=== PATIENT | female | born 1955 | race Caucasian/White ===

== ENCOUNTER 2020-06-01 08:00 | Outpatient (CLI) | payer MEDICARE ==
[2020-06-01 18:36] LABS: BASOPHILS # (AUTO) 0.1 10^3/uL (0.0-0.1); BASOPHILS % (AUTO) 0.8 %; EOSINOPHILS # (AUTO) 0.1 10^3/uL (0.0-0.7); EOSINOPHILS % (AUTO) 1.8 %; HGB - HEMOGLOBIN 16.6 g/dL (12.0-16.0); LYMPHOCYTES # (AUTO) 1.6 10^3/uL (1.5-3.5); MEAN CORPUSCULAR HEMOGLOBIN 32.8 pg (27.0-31.0); MEAN CORPUSCULAR HGB CONC 33.3 g/dL (32.0-36.0); MEAN CORPUSCULAR VOLUME 98.4 fL (81.0-99.0); MEAN PLATELET VOLUME 11.4 fL (7.9-10.8); MONOCYTES # (AUTO) 0.5 10^3/uL (0.0-1.0); MONOCYTES % (AUTO) 7.9 %; PLT - PLATELET COUNT 229 10^3/uL (130-450); RED BLOOD COUNT 5.06 10^6/uL (4.20-5.40); RED CELL DISTRIBUTION WIDTH 13.5 % (12.0-15.0); WHITE BLOOD COUNT 6.2 x10^3/uL (4.8-10.8)
[2020-06-01 18:55] LABS: ALBUMIN 4.1 g/dL (3.2-5.5); ALBUMIN/GLOBULIN RATIO 1.2 (1.0-2.2); ALKALINE PHOSPHATASE 73 IU/L (42-121); ALT ALANINE AMINOTRANSFERASE 12 IU/L (10-60); AST ASPARTATE AMINOTRANSFERASE 19 IU/L (10-42); BILIRUBIN,TOTAL 0.6 mg/dL (0.2-1.0); BUN - BLOOD UREA NITROGEN 15 mg/dL (6-20); CALCIUM 9.6 mg/dL (8.5-10.3); CARBON DIOXIDE - CO2 26 mmol/L (21-32); CHLORIDE 102 mmol/L (101-111); CHOL/HDL RATIO 2.8 (<4.4); CHOLESTEROL 249 mg/dL; CREATININE 0.9 mg/dL (0.4-1.0); GLUCOSE 81 mg/dL (70-100); HDL CHOLESTEROL 89 mg/dL; LDL CHOLESTEROL,CALCULATED 142 mg/dL; LDL/HDL RATIO 1.6 (<4.4); SODIUM 138 mmol/L (135-145); TOTAL PROTEIN 7.4 g/dL (6.7-8.2); VLDL CHOLESTEROL 18 mg/dL
== END 2020-06-01 23:59 | disposition home or self-care (01) ==
LOC: LAB.WCP 08:00
PROVIDERS: ATTEND Nurse Practitioner
DX: E07.9 Disorder of thyroid, unspecified (principal); I71.4 Abdominal aortic aneurysm, without rupture; Z79.01 Long term (current) use of anticoagulants; Z79.899 Other long term (current) drug therapy; Z85.118 Personal history of other malignant neoplasm of bronchus and lung
CPT/HCPCS: 36415; 80053; 80061; 83721; 84443; 85025

== ENCOUNTER 2020-06-27 20:51 | Emergency (ER) | payer MEDICARE ==
--- NOTE | 2020-06-27 21:13 | ED Physician Documentation ---
History of Present Illness - Stated complaint Stated Complaint: HEAD PX/FALL - Chief complaint Chief Complaint: Trauma Hd/Nk - History obtained from History obtained from: Patient - Additonal information Additional information: Patient is a 65-year-old female presents after she fell and hit her head it was witnessed she is on blood thinners. There is no loss of consciousness denies neck pain. Review of Systems Constitutional: reports: Reviewed and negative Eyes: reports: Reviewed and negative Ears: reports: Reviewed and negative Nose: reports: Reviewed and negative Throat: reports: Reviewed and negative Cardiac: reports: Reviewed and negative Respiratory: reports: Reviewed and negative GI: reports: Reviewed and negative : reports: Reviewed and negative Skin: reports: Reviewed and negative Musculoskeletal: reports: Reviewed and negative Neurologic: reports: Head injury Psychiatric: reports: Reviewed and negative Endocrine: reports: Reviewed and negative Immunocompromised: reports: Reviewed and negative PD PAST MEDICAL HISTORY - Allergies Allergies/Adverse Reactions: Allergies Allergy/AdvReac Type Severity Reaction Status Date / Time steroids Allergy Hallucinati Uncoded 06/27/20 21:04 ons PD ED PE NORMAL - Vitals Vital signs reviewed: Yes - General General: Alert and oriented X 3, No acute distress, Well developed/nourished - HEENT HEENT: PERRL, Other (4 x 4 centimeter posterior scalp hematoma but no septal hematoma no acute missing teeth no raccoon eyes no burnett sign) - Neck Neck: Supple, no meningeal sign, No bony TTP - Cardiac Cardiac: RRR, No murmur - Respiratory Respiratory: Clear bilaterally - Abdomen Abdomen: Normal bowel sounds, Soft, Non tender, Non distended - Derm Derm: Warm and dry - Extremities Extremities: No deformity - Neuro Neuro: Alert and oriented X 3 - Psych Psych: Normal mood, Normal affect Results - Vitals Vitals: Vital Signs - 24 hr 06/27/20 06/27/20 20:58 23:18 Temperature 36.9 C 36.6 C Heart Rate 87 72 Respiratory 18 22 Rate Blood Pressure 139/89 H 148/95 H O2 Saturation 92 94 Oxygen O2 Source Room air - Labs Labs: Laboratory Tests 06/27/20 06/27/20 06/27/20 21:11 21:11 21:11 WBC 7.5 RBC 5.18 Hgb 16.6 H Hct 50.9 H MCV 98.3 MCH 32.0 H MCHC 32.6 RDW 13.4 Plt Count 209 MPV 10.6 Neut # (Auto) 5.2 Lymph # (Auto) 1.6 [place] # (Auto) 0.5 Eos # (Auto) 0.1 Baso # (Auto) 0.1 Absolute Nucleated RBC 0.00 Nucleated RBC % 0.0 PT 13.6 H INR 1.2 APTT 30.0 Sodium 138 Potassium 3.7 Chloride 101 Carbon Dioxide 25 Anion Gap 12.0 BUN 12 Creatinine 0.9 Estimated GFR (MDRD) 62 L Glucose 111 H Calcium 9.5 Total Bilirubin 0.5 AST 22 ALT 20 Alkaline Phosphatase 79 Total Protein 7.6 Albumin 4.3 Globulin 3.3 Albumin/Globulin Ratio 1.3 Lipase 31 PD MEDICAL DECISION MAKING - ED course ED course: 65-year-old female who fell and hit the back of her head there is negative CT the head negative CT of the C-spine. Patient will be discharged home with close follow-up tomorrow with her primary care provider Departure - Departure Disposition: 01 Home, Self Care Clinical Impression: Scalp hematoma Qualifiers: Encounter type: initial encounter Qualified Code(s): S00.03XA - Contusion of scalp, initial encounter Fall Qualifiers: Encounter type: initial encounter Qualified Code(s): W19.XXXA - Unspecified fall, initial encounter Condition: Stable Instructions: ED Hematoma Follow-Up: Tiff Raman ARNP, [employer] [Primary Care Provider] - Tomorrow Comments: You may take Tylenol as needed for your pain. Ice your scalp hematoma several times daily please follow-up with your doctor tomorrow. Discharge Date/Time: 06/27/20 23:19
[2020-06-27 21:22] LABS: BASOPHILS # (AUTO) 0.1 10^3/uL (0.0-0.1); BASOPHILS % (AUTO) 0.7 %; EOSINOPHILS # (AUTO) 0.1 10^3/uL (0.0-0.7); EOSINOPHILS % (AUTO) 1.3 %; HGB - HEMOGLOBIN 16.6 g/dL (12.0-16.0); LYMPHOCYTES # (AUTO) 1.6 10^3/uL (1.5-3.5); LYMPHOCYTES % (AUTO) 21.7 %; MEAN CORPUSCULAR HGB CONC 32.6 g/dL (32.0-36.0); MEAN CORPUSCULAR VOLUME 98.3 fL (81.0-99.0); MEAN PLATELET VOLUME 10.6 fL (7.9-10.8); MONOCYTES # (AUTO) 0.5 10^3/uL (0.0-1.0); MONOCYTES % (AUTO) 6.3 %; NEUTROPHILS # (AUTO) 5.2 10^3/uL (1.5-6.6); NEUTROPHILS % (AUTO) 68.8 %; PLT - PLATELET COUNT 209 10^3/uL (130-450); RED BLOOD COUNT 5.18 10^6/uL (4.20-5.40); RED CELL DISTRIBUTION WIDTH 13.4 % (12.0-15.0); WHITE BLOOD COUNT 7.5 x10^3/uL (4.8-10.8)
[2020-06-27 21:25] LABS: INR 1.2 (0.8-1.2); PT - PROTHROMBIN TIME 13.6 secs (9.9-12.6)
[2020-06-27 21:32] LABS: ALBUMIN 4.3 g/dL (3.2-5.5); ALBUMIN/GLOBULIN RATIO 1.3 (1.0-2.2); BILIRUBIN,TOTAL 0.5 mg/dL (0.2-1.0); CALCIUM 9.5 mg/dL (8.5-10.3); CREATININE 0.9 mg/dL (0.4-1.0); TOTAL PROTEIN 7.6 g/dL (6.7-8.2)
--- NOTE | 2020-06-27 22:08 | CT Report ---
PROCEDURE: HEAD WO INDICATIONS: fall, xarelto, altered TECHNIQUE: Noncontrast 4.5 mm thick angled axial sections acquired from the foramen magnum to the vertex. For r adiation dose reduction, the following was used: automated exposure control, adjustment of mA and/or kV according to patient size. COMPARISON: None. FINDINGS: Image quality: Excellent. CSF spaces: Basal cisterns are patent. No extra-axial fluid collections. Ventricles are normal in size and shape. Brain: No midline shift. No acute intracranial hemorrhage or mass effect. An area of chronic encepha lomalacia is seen in the right occipital lobe. Scattered hypodensities in subcortical and periventric ular white matter compatible with chronic microvascular ischemic changes. Skull and face: A left parietal scalp hematoma is seen. No underlying skull fracture is seen. Postsur gical changes are seen in the right occipital region from prior craniotomy. Sinuses: Visualized sinuses and mastoids are clear. IMPRESSION: 1. No acute intracranial hemorrhage or mass effect. A left parieto-occipital scalp hematoma is seen without underlying skull fracture. 2. Postsurgical changes from right occipital craniotomy. Chronic encephalomalacia is seen in the rig ht occipital lobe. 3. Mild diffuse cerebral and cerebellar volume loss. Chronic microvascular ischemic changes. Reviewed by: Gabino Oscar MD on 06/27/2020 10:06 PM PDT Approved by: Gabino Oscar MD on 06/27/2020 10:06 PM PDT Station ID: [id number]
--- NOTE | 2020-06-27 22:26 | CT Report ---
PROCEDURE: CERVICAL SPINE WO INDICATIONS: fall neck pain TECHNIQUE: Noncontrast 3 mm thick sections acquired from the skull base to the T4 level. Sagittal and coronal r eformats were then constructed. For radiation dose reduction, the following was used: automated exp osure control, adjustment of mA and/or kV according to patient size. COMPARISON: None. FINDINGS: Image quality: Excellent. Bones: No acute fractures or dislocations. Visualized superior ribs are intact. Multilevel degener ative changes are seen throughout the cervical spine with degenerative endplate changes and facet hyp ertrophy. Soft tissues: Prevertebral soft tissues are normal in thickness. No paravertebral hematomas. No ap ical pneumothoraces. IMPRESSION: No acute cervical spine fracture or subluxation. Multilevel chronic degenerative changes are noted. Reviewed by: Gabino Oscar MD on 06/27/2020 10:24 PM PDT Approved by: Gabino Oscar MD on 06/27/2020 10:24 PM PDT Station ID: [id number]
[2020-06-27] MEDS ORDERED: ACETAMINOPHEN 325 MG TABLET PO STA (22:40)
[2020-06-27 23:19] VITALS: BP 148/95
== END 2020-06-27 23:19 | disposition home or self-care (01) ==
LOC: ED 20:51
DX: S00.03XA Contusion of scalp, initial encounter (principal); W18.30XA Fall on same level, unspecified, initial encounter; Z79.01 Long term (current) use of anticoagulants; M47.812 Spondylosis without myelopathy or radiculopathy, cervical region
CPT/HCPCS: 36415; 70450; 72125; 80053; 83690; 85025; 85610; 85730; 99282; 99284; A9270

== ENCOUNTER 2020-07-17 09:32 | Outpatient (CLI) | payer MEDICARE ==
[2020-07-17 09:59] LABS: BASOPHILS % (AUTO) 0.5 %; EOSINOPHILS # (AUTO) 0.1 10^3/uL (0.0-0.7); EOSINOPHILS % (AUTO) 2.1 %; HGB - HEMOGLOBIN 14.6 g/dL (12.0-16.0); LYMPHOCYTES # (AUTO) 1.2 10^3/uL (1.5-3.5); LYMPHOCYTES % (AUTO) 20.5 %; MEAN CORPUSCULAR HEMOGLOBIN 32.7 pg (27.0-31.0); MEAN CORPUSCULAR HGB CONC 33.1 g/dL (32.0-36.0); MEAN CORPUSCULAR VOLUME 98.9 fL (81.0-99.0); MEAN PLATELET VOLUME 10.4 fL (7.9-10.8); MONOCYTES # (AUTO) 0.5 10^3/uL (0.0-1.0); MONOCYTES % (AUTO) 8.7 %; NEUTROPHILS # (AUTO) 3.9 10^3/uL (1.5-6.6); NEUTROPHILS % (AUTO) 67.9 %; PLT - PLATELET COUNT 199 10^3/uL (130-450); RED BLOOD COUNT 4.46 10^6/uL (4.20-5.40); RED CELL DISTRIBUTION WIDTH 13.4 % (12.0-15.0); WHITE BLOOD COUNT 5.8 x10^3/uL (4.8-10.8)
[2020-07-17 10:32] LABS: THYROID STIMULATING HORMONE 1.15 uIU/mL (0.34-5.60)
[2020-07-17 10:34] LABS: FREE T3 5.21 pg/mL (2.5-3.9); FREE T4 (FREE THYROXINE) 0.92 ng/dL (0.58-1.64)
== END 2020-07-17 09:33 | disposition home or self-care (01) ==
LOC: LAB 09:32
PROVIDERS: ATTEND Nurse Practitioner
DX: E07.9 Disorder of thyroid, unspecified (principal); Z79.01 Long term (current) use of anticoagulants
CPT/HCPCS: 36415; 84439; 84443; 84481; 85025

== ENCOUNTER 2020-08-09 17:42 | Outpatient (CLI) | payer MEDICARE ==
[2020-08-09] MEDS ORDERED: IOVERSOL 320 50 ML VIAL PO ONE (19:15)
[2020-08-09] MEDS ORDERED: IOVERSOL 320 100 ML VIAL IVP ONE (19:16)
--- NOTE | 2020-08-10 17:55 | CT Report ---
PROCEDURE: CHEST W INDICATIONS: METASTATIC LUNG CA CONTRAST: IV CONTRAST: Optiray 320 ml: 100 PO CONTRAST: Optiray 320 ml50 TECHNIQUE: After the administration of intravenous contrast, 5 mm thick sections acquired from the pulmonary api bernadette to the posterior costophrenic angles. 7 mm thick coronal MIP reformats were acquired. For radia tion dose reduction, the following was used: automated exposure control, adjustment of mA and/or kV according to patient size. COMPARISON: None. FINDINGS: Image quality: Excellent. Lungs and pleura: There is a 1.5 x 1.2 x 2.1 cm spiculated mass in the posterior segment of the left upper lobe abutting the major fissure. There are scars and atelectasis in right upper lobe and right lower lobe. No acute air space opacities. No pleural effusions or pneumothorax. Central and periph eral airways are patent and normal in caliber. There is elevation of right hemidiaphragm. Mediastinum: Heart size is normal. No pericardial effusion. No enlarged mediastinal or hilar lymph nodes. Thoracic aorta and central pulmonary arteries are normal in size. Esophagus is normal in ca liber. No hiatal hernia. Bones and chest wall: No suspicious bony lesions. No vertebral body compression fractures. No axil jennifer or supraclavicular adenopathy by size criteria. Thyroid gland is normal. Abdomen: Mild bilateral adrenal thickening. Visualized upper abdominal solid organs otherwise appea r normal. Upper abdominal bowel loops are normal in caliber. IMPRESSION: 1. A 1.5 x 1.2 x 2.1 cm spiculated mass in the posterior segment of the left upper lobe abutting the major fissure. Comparison to prior examinations, if available, would be helpful. 2. No findings to suggest deepa or distant metastasis thorax. 3. Elevation of right hemidiaphragm which could be secondary to phrenic nerve paralysis. Reviewed by: Nancy Davila MD on 08/10/2020 5:54 PM PST Approved by: Nancy Davila MD on 08/10/2020 5:54 PM PST Station ID: [id number]
--- NOTE | 2020-08-10 18:00 | CT Report ---
PROCEDURE: Abdomen/Pelvis W INDICATIONS: METASTATIC LUNG CA CONTRAST: IV CONTRAST: Optiray 320 ml: 100 PO CONTRAST: Optiray 320 ml50 TECHNIQUE: After the administration of IV and oral contrast, 5 mm thick sections acquired from the diaphragms to the symphysis. 5 mm thick coronal and sagittal reformats were acquired. For radiation dose reducti on, the following was used: automated exposure control, adjustment of mA and/or kV according to kristel ent size. COMPARISON: None. FINDINGS: Image quality: Excellent. ABDOMEN: Lung bases: Lung bases are clear. Heart size is normal. Note is made of right hemidiaphragm elevat ion. Solid organs: Liver and spleen are normal in size and enhancement. Gallbladder is contracted. Bili rose marie system is non dilated. Pancreas enhances normally. Bilateral adrenal thinning. There is a 1.1 cm left adrenal nodule. Kidneys demonstrate normal size and enhancement, without hydronephrosis. Peritoneum and bowel: Bowel loops demonstrate normal wall thickness and caliber. There are scattere d colonic diverticula. No CT findings to suggest acute diverticulitis. No free fluid or air. Nodes and vessels: No retroperitoneal or mesenteric adenopathy by size criteria. There is infrarenal abdominal aortic aneurysm measuring up to 4.8 cm. Inferior vena cava filter is noted. Miscellaneous: No ventral hernias. PELVIS: Genitourinary: Bladder wall thickness is normal. Uterus is absent. Left ovary is normal. Right ovar y is not visualized. No free fluid in pelvis. Miscellaneous: No inguinal hernias or adenopathy. There is a 2.5 cm subcutaneous nodule in the supe rior left buttock. Bones: No suspicious bony lesions. No vertebral body compression fractures. There are degenerative changes in thoracic and lumbar spine. IMPRESSION: 1. A 1.1 cm left adrenal nodule. Comparison to prior examinations, if available, would be helpful. If clinically indicated, follow-up adrenal protocol CT or MRI may be obtained. 2. No findings to suggest metastatic disease in abdomen or pelvis. 3. Diverticulosis without diverticulitis. 4. Infrarenal abdominal aortic aneurysm measuring up to 4.8 cm. 5. A subcutaneous disease nodule in the superior left buttock. This could be a sebaceous cyst. Recomm end correlation with findings on physical exam. Reviewed by: Nancy Davila MD on 08/10/2020 5:59 PM PST Approved by: Nancy Davila MD on 08/10/2020 5:59 PM PST Station ID: [id number]
== END 2020-08-09 17:43 | disposition home or self-care (01) ==
LOC: LAB 17:42
PROVIDERS: ATTEND Internal Medicine Hematology & Oncology
DX: C34.90 Malignant neoplasm of unspecified part of unspecified bronchus or lung (principal); C79.31 Secondary malignant neoplasm of brain; R91.8 Other nonspecific abnormal finding of lung field; E27.8 Other specified disorders of adrenal gland; K57.30 Diverticulosis of large intestine without perforation or abscess without bleeding; I71.4 Abdominal aortic aneurysm, without rupture; R22.2 Localized swelling, mass and lump, trunk
CPT/HCPCS: 36415; 71260; 74177; 82565

== ENCOUNTER 2020-08-12 09:19 | Outpatient (CLI) | payer MEDICARE ==
[2020-08-12 10:13] LABS: CHOL/HDL RATIO 2.5 (<4.4); CHOLESTEROL 189 mg/dL; HDL CHOLESTEROL 77 mg/dL; LDL CHOLESTEROL,CALCULATED 101 mg/dL; LDL/HDL RATIO 1.3 (<4.4); VLDL CHOLESTEROL 11 mg/dL
== END 2020-08-12 09:20 | disposition home or self-care (01) ==
LOC: LAB 09:19
PROVIDERS: ATTEND Nurse Practitioner
DX: E78.00 Pure hypercholesterolemia, unspecified (principal)
CPT/HCPCS: 36415; 80061; 83721

== ENCOUNTER 2020-09-27 08:27 | Outpatient (CLI) | payer MEDICARE ==
[2020-09-27 09:16] LABS: FREE T3 2.77 pg/mL (2.5-3.9)
[2020-09-27 09:17] LABS: FREE T4 (FREE THYROXINE) 0.67 ng/dL (0.58-1.64)
== END 2020-09-27 08:28 | disposition home or self-care (01) ==
LOC: LAB 08:27
PROVIDERS: ATTEND Nurse Practitioner
DX: E07.9 Disorder of thyroid, unspecified (principal)
CPT/HCPCS: 36415; 84439; 84443; 84481

== ENCOUNTER 2020-10-02 16:58 | Outpatient (CLI) | payer MEDICARE ==
[2020-10-02] MEDS ORDERED: GADOBUTROL 10 MMOL/10 ML VIAL ONE (17:16)
[2020-10-02] MEDS ORDERED: GADOBUTROL 10 MMOL/10 ML VIAL IVP ONE (18:02)
--- NOTE | 2020-10-02 18:31 | MRI Report ---
PROCEDURE: Brain W/WO INDICATIONS: MET LUNG CA CONTRAST: Correlation is made with prior head CT 06/27/2020. TECHNIQUE: Noncontrast axial T1 spin echo, axial T2 fast spin echo, sagittal and axial FLAIR, coronal T2 fast sp in echo, axial gradient echo, axial diffusion and ADC through the brain. After the administration of contrast, axial and coronal T1 spin echo with fat saturation through the brain. COMPARISON: None. FINDINGS: Image quality: Excellent. CSF spaces: Basal cisterns are patent. No extra-axial fluid collections. There is stable ex vacuo d ilatation seen involving the posterior aspect of the right lateral ventricle. Brain: Volume loss and encephalomalacia can be seen involving the right occipital lobe. Mild enhance ment can be seen along the resection bed superiorly, as on series 1003 image 106 and on series 1001 i mage 91. The mild amount of hemosiderin deposition can be seen along the margin of the resection cavi ty, as on series 701 image 13. No midline shift. No intracranial bleeds or masses. No abnormal intracranial enhancement. There is cerebral volume loss for age. There is periventricular white matter chronic small vessel ischemic c hange. The brainstem appears normal. Diffusion-weighted images demonstrate no acute ischemic insult s. Normal intravascular flow voids are present. Skull and face: Right occipital craniotomy changes are seen. Calvarial marrow is normal in signal. O rbits appear normal. Sinuses: Sinuses and mastoids appear clear. IMPRESSION: Right occipital lobe resection cavity, with mild enhancement seen along the margins of the resection cavity. The degree of enhancement is most in keeping with normal postoperative enhancement. However, residual neoplasm is possible. Please consider a follow-up contrast-enhanced MRI in 4-8 weeks for further evaluation. Reviewed by: Oj Myers MD on 10/02/2020 5:30 PM AKST Approved by: Oj Myers MD on 10/02/2020 5:30 PM AK Station ID: [id number]
== END 2020-10-02 16:59 | disposition home or self-care (01) ==
LOC: DI 16:58
PROVIDERS: ATTEND Internal Medicine Hematology & Oncology
DX: C34.90 Malignant neoplasm of unspecified part of unspecified bronchus or lung (principal); C79.31 Secondary malignant neoplasm of brain
CPT/HCPCS: 70553; A9585

== ENCOUNTER 2020-11-14 09:44 | Outpatient (CLI) | payer MEDICARE ==
[2020-11-14] MEDS ORDERED: IOVERSOL 320 100 ML VIAL IVP ONE ×2 (14:50→15:49)
[2020-11-14] MEDS ORDERED: IOPAMIDOL-300 50 ML VIAL ONE (14:50)
[2020-11-14] MEDS ORDERED: IOPAMIDOL-300 50 ML VIAL PO ONE (15:49)
--- NOTE | 2020-11-14 16:03 | CT Report ---
PROCEDURE: Abdomen/Pelvis W INDICATIONS: HEMOCCULT POSITIVE STOOL CONTRAST: IV CONTRAST: Optiray 320 ml: 100 PO CONTRAST: Isovue 300 ml50 TECHNIQUE: After the administration of IV and oral contrast, 5 mm thick sections acquired from the diaphragms to the symphysis. 5 mm thick coronal and sagittal reformats were acquired. For radiation dose reducti on, the following was used: automated exposure control, adjustment of mA and/or kV according to kristel ent size. COMPARISON: None. FINDINGS: Image quality: Excellent. ABDOMEN: Lung bases: Right hemidiaphragm is elevated Lung bases are otherwise clear. Heart size is normal. Solid organs: Liver and spleen are normal in size and enhancement. Gallbladder is within normal zelaya its Biliary system is non dilated. Pancreas enhances normally. No right adrenal nodules. No change in 10 mm left adrenal nodule. Partially exophytic 45 mm cyst involves the inferior pole left kidney. Kidneys demonstrate otherwise normal size and enhancement, without hydronephrosis. Peritoneum and bowel: Right sided colonic interposition is present. Diverticulosis of the descending and sigmoid colon. Bowel loops demonstrate normal wall thickness and caliber. No free fluid or air. Nodes and vessels: No retroperitoneal or mesenteric adenopathy by size criteria. IVC is normal in ca liber. There is fusiform aneurysmal dilatation of the infrarenal abdominal aorta, measuring 42 [address]ilio rt axis. An IVC filter is present. Miscellaneous: There is a 36 mm fat-containing anterior pelvic wall hernia. There is a 15 mm fat-cont aining periumbilical hernia. PELVIS: Genitourinary: Bladder wall thickness is normal. Miscellaneous: No inguinal hernias or adenopathy. No change in subcutaneous rounded soft tissue den sity within the left gluteal region measuring 20 mm. Bones: No suspicious bony lesions. No vertebral body compression fractures. IMPRESSION: 1. Diverticulosis of the descending and sigmoid colon. 2. Fat-containing anterior abdominal pelvic wall hernias. 3. Infrarenal abdominal aortic aneurysm. 4. No change in left adrenal nodule. 5. No change in presumed sebaceous cyst within the left gluteal subcutaneous fat. Reviewed by: Levar Ramos MD on 11/14/2020 4:02 PM PST Approved by: Levar Ramos MD on 11/14/2020 4:02 PM PST Station ID: [id number]
== END 2020-11-14 09:45 | disposition home or self-care (01) ==
LOC: LAB 09:44
PROVIDERS: ATTEND Surgery
DX: K57.30 Diverticulosis of large intestine without perforation or abscess without bleeding (principal); K43.9 Ventral hernia without obstruction or gangrene; I71.4 Abdominal aortic aneurysm, without rupture; E27.8 Other specified disorders of adrenal gland; R19.5 Other fecal abnormalities
CPT/HCPCS: 36415; 74177; 82565; Q9967